=== PATIENT | male | born 1985 | race African-American/Black ===

== ENCOUNTER 2023-01-15 06:47 | Emergency (ER) | payer OTHER ==
[~2023-01-15] VITALS: Ht 180.3 cm; Wt 96.2 kg
[2023-01-15] MEDS ORDERED: OMEP40CA4 PO (08:04)
[2023-01-15 08:10] VITALS: BP 147/96
== END 2023-01-15 08:46 | disposition home or self-care (01) ==
LOC: M ED 06:47
DX: J10.2 Influenza due to other identified influenza virus with gastrointestinal manifestations (principal); K21.9 Gastro-esophageal reflux disease without esophagitis

== ENCOUNTER 2025-06-01 15:54 | Emergency (ER) | payer OTHER ==
[~2025-06-01] VITALS: Ht 180.3 cm; Wt 98.8 kg
[~2025-06-01 15:54] MED LIST: OMEP40CA4 PO
[2025-06-01] MEDS: diphenhydrAMINE 50 MG/ML VIAL IV ONE (16:28)
[2025-06-01] MEDS: FAMOTIDINE 20 MG/2 ML VIAL IVP ONE (16:28)
[2025-06-01] MEDS ORDERED: DIPH50TA6 PO (20:19)
[2025-06-01] MEDS ORDERED: EPIP0.3I2 IM (20:19)
[2025-06-01] MEDS ORDERED: PRED20TA PO (20:19)
[2025-06-01 20:25] VITALS: BP 130/75; TEMP 97.3; O2SAT 95
== END 2025-06-01 20:36 | disposition home or self-care (01) ==
LOC: M ED 15:54
DX: T63.441A Toxic effect of venom of bees, accidental (unintentional), initial encounter (principal); Z79.899 Other long term (current) drug therapy; Z91.030 Bee allergy status
CPT/HCPCS: 93041; 94760; 96374; 96375; 99285; J1200; J1308; J2919

== ENCOUNTER 2025-10-09 16:35 | Emergency (ER) | payer OTHER ==
[~2025-10-09] VITALS: Ht 180.3 cm; Wt 98.0 kg
[~2025-10-09 16:35] MED LIST changes: +DIPH50TA6 PO; +EPIP0.3I2 IM; +PRED20TA PO
[2025-10-09] MEDS: LIDOCAINE 5% PATCH TD ONE (20:09)
[2025-10-09] MEDS: ACETAMINOPHEN 500 MG TAB PO ONE (20:09)
[2025-10-09] MEDS ORDERED: LIDO1ADH93 TD (22:28)
[2025-10-09] MEDS ORDERED: MEDR4PAK PO (22:28)
[2025-10-09] MEDS ORDERED: METH-1164 PO (22:28)
[2025-10-09 22:37] VITALS: BP 142/82; TEMP 97.9; O2SAT 99
== END 2025-10-09 22:39 | disposition home or self-care (01) ==
LOC: M ED 16:35
DX: S39.012A Strain of muscle, fascia and tendon of lower back, initial encounter (principal); X58.XXXA Exposure to other specified factors, initial encounter
CPT/HCPCS: 72131; 96372; 99283; J2919